=== PATIENT | female | born 1945 | race Native Hawaiian/Other Pacific Islander ===

== ENCOUNTER 2019-07-26 11:25 | Outpatient (CLI) | payer OTHER ==
[2019-07-26 11:38] LABS: PLATELET COUNT 169 K/uL (152-353)
[2019-07-26 11:43] LABS: POTASSIUM 4.1 mmol/L (3.6-5.2)
== END 2019-07-26 20:11 | disposition home or self-care (01) ==
LOC: LABW 11:25
PROVIDERS: Podiatrist Foot & Ankle Surgery
DX: Z01.818 Encounter for other preprocedural examination (principal)
CPT/HCPCS: 36415; 80048; 85027

== ENCOUNTER 2020-09-20 10:03 | Outpatient (CLI) | payer OTHER | END 2020-09-20 19:33 | disposition home or self-care (01) | LOC: LABW 10:03 | PROVIDERS: ATTEND Dermatology | DX: D48.5 Neoplasm of uncertain behavior of skin (principal); L40.0 Psoriasis vulgaris; L60.3 Nail dystrophy; Z71.89 Other specified counseling; Z79.899 Other long term (current) drug therapy; R53.82 Chronic fatigue, unspecified | CPT/HCPCS: 36415; 80074; 86480 ==